=== PATIENT | female | born 1940 | race Caucasian/White ===

== ENCOUNTER 2017-04-27 10:41 | Observation (INO) ==
--- NOTE | 2017-04-27 10:50 | Emergency Department Note ---
Disposition Clinical Impression: Dehydration, Near syncope Disposition: Admitted As Inpatient Condition: Good Referrals: Serena Del Castillo DO [Primary Care Provider] - Forms: ED Satisfaction Letter Syncope HPI - General Chief Complaint: ED Syncope Stated Complaint: syncopal episode Source: patient, other (bystander/friend) Mode of arrival: private vehicle Limitations: no limitations Nursing Notes Reviewed: Yes Vital Signs Reviewed: Yes - History of Present Illness HPI Narrative: Patient presents to the ED via personal vehicle after two witnessed near syncopal events while in pentecostalism. States she was standing in pentecostalism around 10 AM today when she started feeling a "squeezing and pinching" sensation in her back, "as if two vertebrae were fighting". States she began feeling lightheaded and then sat down. She was witnessed to have slumped to the side and was noted to be pale, cool and diaphoretic. Patient states she saw some flashing lights and halos in her vision at the time. She denies any palpitations, chest pain or shortness of breath at the time of either episode. States she did not fully lose consciousness. States she had a similar episode of this squeezing sensation in her back approximately 3 weeks ago when she was doing some light housework at home. States she laid down in bed and propped her feet up and the symptoms went away. She has not seen her doctor about them. Her only current complaint now is feeling generally weak. She denies any numbness, tingling or weakness specifically in an arm or leg or speech difficulties at the time of the near-syncope or currently. History is notable for CHF, hypertension and high cholesterol. States she has a loop recorder and was on a Holter monitor for a history of tachycardia episodes that resulted in an ablation in 2014. She sees Dr. Hernandez of cardiology. Her last visit was 3 months ago. States he has mentioned that she may need some type of open heart surgery for problems with the left side of her heart. She does not recall ever having a cardiac catheterization. States she has never had an GA. She last saw her PCP, Gui Del Castillo, approximately 3 weeks ago and was started on Remeron for appetite stimulation. No other recent medication changes. She denies any swelling in her legs. No current pain. Denies any recent illness, sick contacts or travel. - Related Data Home Medications Medication Instructions Recorded Confirmed Atorvastatin 20 mg PO DAILY 04/27/17 04/27/17 Calcium Carbonate/Vitamin D3 1 tab PO DAILY 04/27/17 04/27/17 [Calcium 600 + Vit D Tablet] Carvedilol [Coreg] 6.25 mg PO BIDWM 04/27/17 04/27/17 Clopidogrel [Plavix] 75 mg PO DAILY 04/27/17 04/27/17 Famotidine [Heartburn Prevention] 20 mg PO DAILY 04/27/17 04/27/17 Furosemide [Lasix] 40 mg PO DAILY 04/27/17 04/27/17 Lisinopril [Zestril] 20 mg PO DAILY 04/27/17 04/27/17 Mirtazapine [Remeron] 15 mg PO HS 04/27/17 04/27/17 Multivit-Min/FA/Lycopen/Lutein 1 each PO DAILY 04/27/17 04/27/17 [Centrum Silver Tablet] Mv-Mn/FA/Vit K1/Lycop/Lut/Zeax 1 each PO DAILY 04/27/17 04/27/17 [Ocuvite Eye + Multi Tablet] [place]-3 Fatty Acids [Fish Oil] 300 mg PO DAILY 04/27/17 04/27/17 Allergies Allergy/AdvReac Type Severity Reaction Status Date / Time aspirin Allergy Hives Verified 04/27/17 10:43 Penicillins [PCN] Allergy Hives Verified 04/27/17 10:43 Constitutional: Denies: fever, chills, weakness, weight change Eyes: Denies: eye pain, eye discharge, vision change ENT ED: Denies: ear pain, throat pain, dental pain, hearing loss, epistaxis, congestion, dysphagia Cardiovascular: Denies: chest pain, palpitations, dyspnea on exertion, edema, syncope Respiratory: Denies: cough, dyspnea, wheezes, hemoptysis, stridor Gastrointestinal: Denies: abdominal pain, nausea, vomiting, diarrhea, constipation, hematemesis, melena, hematochezia Genitourinary: Denies: dysuria, frequency, hematuria, discharge Musculoskeletal: Reports: as per HPI. Denies: back pain, neck pain, arthralgia , myalgia Integumentary: Denies: rash, abrasion, lesions Neurological: Reports: as per HPI. Denies: headache, weakness, numbness, paresthesias, confusion, abnormal gait, vertigo Psychiatric: Denies: anxiety, depression, suicidal thoughts, homicidal thoughts , auditory hallucinations, visual hallucinations Endocrine: Denies: fatigue Hematological/Lymphatic: Denies: easy bleeding, easy bruising Allergic/Immunologic: Denies: facial swelling, urticaria Physical Exam - General Limitations: no limitations General appearance: alert, in no apparent distress, other (thin, frail appearing ) - Head Head exam: atraumatic, normocephalic, normal inspection - Eye Eye exam: Present: normal appearance, PERRL, EOMI - ENT ENT exam: normal exam, normal oropharynx, mucous membranes moist - Neck Neck exam: Present: normal inspection, full ROM, trachea midline - Chest Chest inspection: Present: normal inspection, symmetric chest wall rise - Respiratory Respiratory exam: Present: normal lung sounds bilaterally - Cardiovascular Cardiovascular exam: Present: regular rate, normal rhythm, normal heart sounds - Abdominal Exam Abdominal exam: Present: soft, Non-Tender. Absent: tenderness, distention, guarding, rebound, rigidity - Extremities Exam Extremities exam: Present: normal inspection, full ROM. Absent: tenderness, pedal edema - Back Exam Back exam: Present: normal inspection, full ROM. Absent: tenderness - Neurological Exam Neurological exam: Present: alert, oriented X3, CN II-XII intact. Absent: motor sensory deficit - Expanded Neurological Exam Speech: Present: fluid speech Cerebellar function: finger to nose: Normal Motor strength - LUE: 5/5 Motor strength - RUE: 5/5 Motor strength - LLE: 5/5 Motor strength - RLE: 5/5 - Psychiatric Psychiatric exam: Present: normal affect, normal mood - Skin Skin exam: Present: warm, dry, intact, normal color Course Course Narrative: Patient presents to the ED after experiencing two near syncopal episodes while in pentecostalism. She was initially mildly bradycardic on arrival to the ED with heart rate in the upper 40s which improved to the mid 60s without intervention. Initial blood pressures in the left arm were 80s over 50s compared to 130s over 60s in the right arm. Patient states this is normal for her and it has been that way for quite some time. Review of records shows that she had an abdominal aortic ultrasound and aortic iliac vascular ultrasound last August that showed no evidence of aneurysm. EKG on arrival shows a sinus rhythm with frequent PACs with a rate of 62. No acute ischemic changes. No prior EKGs are available for comparison. Patient is currently asymptomatic. Will obtain chest x-ray, orthostatic vitals and labs to rule out any electrolyte abnormality or other underlying cause for her near syncope which I suspect may be either due to orthostatic hypotension, a vasovagal episode or other cardiac cause. - Reevaluation(s) Reevaluation #1: Orthostatic vital signs were normal and patient experienced no symptoms during testing. Laboratory studies show a normal CBC and normal troponin. BNP is slightly elevated at 212 but chest x-ray does not show any overt failure. BMP shows normal electrolytes but she does have worsening kidney function compared to December with an element of acute kidney injury which is likely due to dehydration. Patient's niece states again that the difference in blood pressures between her arms is normal for the patient. She apparently has a history of mitral valve regurgitation and stenosis or other form of problem in her left subclavian artery that is the cause of this. At this time I do not suspect the patient has had an acute cardiac event but would benefit from some gentle IV hydration with repeat labs in the a.m. Spoke to patient and family who are agreeable with an overnight stay for continued monitoring and hydration. Will contact the hospitalist on-call, Dr. Mc. Time: 12:13 Reevaluation #2: I spoke to the hospitalist sterile preparation technician, Dr. Mc who has accepted the patient. Time: 12:20 Vital Signs Temperature 97.1 F L 04/27/17 10:44 Pulse Rate 67 04/27/17 10:44 Respiratory Rate 18 04/27/17 10:44 Blood Pressure 87/53 04/27/17 10:44 O2 Sat by Pulse Oximetry 99 04/27/17 10:44 Temperature 97.1 F L 04/27/17 10:44 Pulse Rate 65 04/27/17 11:56 Respiratory Rate 18 04/27/17 11:56 Blood Pressure 141/48 04/27/17 11:56 O2 Sat by Pulse Oximetry 99 04/27/17 11:56 Oxygen Delivery Oxygen Delivery Room Air Syncope - Differential Diagnosis Likely: syncope due to orthostatic hypotension, vasovagal syncope - Medical Records Medical records reviewed: Yes I reviewed the patient's medical records. - Lab Data Lab results reviewed: Yes I reviewed the patient's lab results. Result diagrams: 04/27/17 11:18 06/11/17 11:18 Lab Results 04/27/17 04/27/17 04/27/17 Range/Units 11:18 11:18 11:18 WBC 9.1 (4.3-11.1) K/mcL RBC 3.95 (3.82-4.97) M/mcL Hgb 11.8 (11.5-15.4) g/dL Hct 35.5 (35.3-44.9) % MCV 89.9 (83.0-100.0) fL MCH 29.9 (28.0-33.3) pg MCHC 33.2 (31.6-35.5) g/dL RDW 13.9 (11.5-14.5) % Plt Count 183 (140-400) K/mcL MPV 10.1 (9.4-12.4) fL Immature Gran % 0.2 (0-4) % Seg Neutrophils % 73.8 % Lymphocytes % 18.8 % Monocytes % 5.7 % Eosinophils % 1.3 % Basophils % 0.2 % Neutrophils # 6.7 (1.6-8.9) K/mcL Lymphocytes # 1.7 (0.6-4.6) K/mcL Monocytes # 0.5 (0.0-1.3) K/mcL Eosinophils # 0.1 (0.0-0.6) K/mcL Basophils # 0.0 (0.0-0.2) K/mcL PT 10.4 (9.4-12.1) Seconds INR 1.0 APTT 29.6 (26.0-36.0) Seconds Sodium 143 (136-145) mEq/L Potassium 4.1 (3.5-4.5) mEq/L Chloride 107 (98-109) mEq/L Carbon Dioxide 19 (19-29) mEq/L BUN 52 H (7-20) mg/dL Creatinine 1.87 H (0.57-1.11) mg/dL Est GFR ( Amer) 32 L (> 60) Est GFR (Non-Af Amer) 26 L (> 60) BUN/Creatinine Ratio 28 H (6-26) Glucose 120 H (70-99) mg/dL Calculated Osmolality 311 H (280-300) Calcium 9.5 (8.6-10.8) mg/dL Troponin I (0-0.03) ng/mL B-Natriuretic Peptide (0-100) pg/mL 04/27/17 04/27/17 Range/Units 11:18 11:18 WBC (4.3-11.1) K/mcL RBC (3.82-4.97) M/mcL Hgb (11.5-15.4) g/dL Hct (35.3-44.9) % MCV (83.0-100.0) fL MCH (28.0-33.3) pg MCHC (31.6-35.5) g/dL RDW (11.5-14.5) % Plt Count (140-400) K/mcL MPV (9.4-12.4) fL Immature Gran % (0-4) % Seg Neutrophils % % Lymphocytes % % Monocytes % % Eosinophils % % Basophils % % Neutrophils # (1.6-8.9) K/mcL Lymphocytes # (0.6-4.6) K/mcL Monocytes # (0.0-1.3) K/mcL Eosinophils # (0.0-0.6) K/mcL Basophils # (0.0-0.2) K/mcL PT (9.4-12.1) Seconds INR APTT (26.0-36.0) Seconds Sodium (136-145) mEq/L Potassium (3.5-4.5) mEq/L Chloride (98-109) mEq/L Carbon Dioxide (19-29) mEq/L BUN (7-20) mg/dL Creatinine (0.57-1.11) mg/dL Est GFR ( Amer) (> 60) Est GFR (Non-Af Amer) (> 60) BUN/Creatinine Ratio (6-26) Glucose (70-99) mg/dL Calculated Osmolality (280-300) Calcium (8.6-10.8) mg/dL Troponin I 0.01 (0-0.03) ng/mL B-Natriuretic Peptide 212 H (0-100) pg/mL - Radiology Data Radiology results reviewed: Yes I reviewed the patient's radiology results. ITS Impressions Chest X-Ray 04/27/17 11:09 IMPRESSION: Borderline cardiomegaly and probable pulmonary emphysema. No acute infiltrate or edema D/ / Bereket Paniagua MD / Bereket Paniagua MD Interpreting Provider: Bereket Paniagua MD - EKG Data EKG attestation: Yes I reviewed and interpreted this EKG. EKG shows normal: sinus rhythm Rate: normal Rhythm: NSR, PAC's [place]/QRS: normal When compared to previous EKG there are: previous EKG unavailable Interpretation: no acute changes, nonspecific ST-T wave changes
[2017-04-27 11:25] LABS: Basophils % 0.2 %; Eosinophils # 0.1 K/mcL (0.0-0.6); Eosinophils % 1.3 %; Hematocrit 35.5 % (35.3-44.9); Hemoglobin 11.8 g/dL (11.5-15.4); Immature Granulocytes % 0.2 % (0-4); Lymphocytes # 1.7 K/mcL (0.6-4.6); Lymphocytes % 18.8 %; Mean Corpuscular HGB Conc 33.2 g/dL (31.6-35.5); Mean Corpuscular Hemoglobin 29.9 pg (28.0-33.3); Mean Corpuscular Volume 89.9 fL (83.0-100.0); Mean Platelet Volume 10.1 fL (9.4-12.4); Monocytes # 0.5 K/mcL (0.0-1.3); Monocytes % 5.7 %; Neutrophils # 6.7 K/mcL (1.6-8.9); Platelet Count 183 K/mcL (140-400); Red Blood Count 3.95 M/mcL (3.82-4.97); Red Cell Distribution Width 13.9 % (11.5-14.5); Segmented Neutrophils % 73.8 %
[2017-04-27 11:29] LABS: Prothrombin Time 10.4 Seconds (9.4-12.1)
[2017-04-27 11:32] LABS: Activated Partial Thrombo Time 29.6 Seconds (26.0-36.0)
[2017-04-27 11:39] LABS: Calcium 9.5 mg/dL (8.6-10.8); Potassium 4.1 mEq/L (3.5-4.5)
[2017-04-27] MEDS ORDERED: 0.9 % Sodium Chloride 500 ML IVC ONE (11:55)
[2017-04-27] MEDS ORDERED: Naloxone 0.4 MG/ML INJ IVP PRN ×2 (12:22→12:58)
[2017-04-27] MEDS ORDERED: 0.9 % Sodium Chloride 1,000 ML IVC SCH ×2 (12:30→12:58)
[2017-04-27] MEDS ORDERED: Lisinopril 20 MG TABLET PO SCH (12:58)
[2017-04-27] MEDS ORDERED: Furosemide 40 MG TABLET PO SCH (12:58)
[2017-04-27] MEDS: Famotidine 20 MG TABLET PO SCH (14:32)
[2017-04-27] MEDS: [UNRECOGNIZED DRUG - OTHER] PO SCH (14:32)
[2017-04-27] MEDS: (Calcium Carbonate/Vitamin D3 [Calcium 600 + Vit D Ta) PO SCH (14:32)
--- NOTE | 2017-04-27 17:42 | Internal Med History&Physical ---
Date of Encounter: 04/27/17 Time of Encounter: 17:10 Assessment and Plan (1) Near syncope Current visit: Yes Status: Acute Differential diagnosis includes arrhythmias and orthostatic changes from hypovolemia. She was placed on mirror framer. IV fluids will be given and repeat labs will be done in a.m. along with orthostatic vital signs. (2) Azotemia Current visit: Yes Status: Acute We will hold Lasix and lisinopril. We will give IV fluids and do orthostatic vital signs with repeat labs in a.m. Internal Medicine - H&P: HPI Chief complaint: Near syncope Admitted From: Home Plans for Post Hospital Care: Home History of present illness: Ms. Dejesus is a 76 year old female who came to emergency room stating during anabaptist today she had an episode of near syncope. She laid down in a pew and had diaphoresis. There was no chest pain but she did have pain in her lower back. She was evaluated in emergency room found to have renal failure with possible dehydration. She was admitted to [facility] floor for ongoing care needs. She states she had AV node ablation in 2014 for SVT. She had near syncopal episodes prior to the ablation. She is uncertain if she has a definite diagnosis of heart failure. She states she had a non-exercise stress test 2014 without further recommendation for intervention. She denies AL DVT or pulmonary embolus. She states she has significantly lower blood pressure in her left arm than her right arm and has seen a vascular surgeon without intervention recommended. Past Med Surg Social Fam HX - Past Medical History Medical history: CHF, hyperlipidemia, hypertension Psychiatric history: no psych history - Social History Smoking Status: Current every day smoker Packs per day: less than 1ppd Smokeless Tobacco Status: No Alcohol use: none Drug use: none Internal Medicine - H&P: Meds Atorvastatin 20 mg PO DAILY 04/27/17 [History] Calcium Carbonate/Vitamin D3 [Calcium 600 + Vit D Tablet] 1 tab PO DAILY [History] Carvedilol [Coreg] 6.25 mg PO BIDWM 04/27/17 [History] Clopidogrel [Plavix] 75 mg PO DAILY 04/27/17 [History] Famotidine [Heartburn Prevention] 20 mg PO DAILY 04/27/17 [History] Furosemide [Lasix] 40 mg PO DAILY 04/27/17 [History] Lisinopril [Zestril] 20 mg PO DAILY 04/27/17 [History] Mirtazapine [Remeron] 15 mg PO HS 04/27/17 [History] Multivit-Min/FA/Lycopen/Lutein [Centrum Silver Tablet] 1 each PO DAILY 04/27/17 [History] Mv-Mn/FA/Vit K1/Lycop/Lut/Zeax [Ocuvite Eye + Multi Tablet] 1 each PO DAILY 10/03 [History] Artie-3 Fatty Acids [Fish Oil] 300 mg PO DAILY 04/27/17 [History] Allergies aspirin Allergy (Verified 04/27/17 10:43) Hives Penicillins [PCN] Allergy (Verified 04/27/17 10:43) Hives All Systems PM: A 10-system review of systems was performed and is negative for pertinent findings except as documented above in the HPI. Review of systems: Gen.: She states her weight has been stable the past few months Cardiovascular: As per history of present illness Respiratory: She has smoked since age 17 up to 1 pack per day. She denies diagnosis of chronic lung disease and does not wear home oxygen. GI: She denies disorders of her liver gallbladder or exocrine pancreas : She denies hematuria dysuria or kidney stones Neurologic: She denies large distribution strokes or seizures. She denies TIA events. She states she have a sensation of light flashing in her left visual field briefly during the near syncopal episode earlier today. Endocrine: She has hyperlipidemia but denies diabetes or thyroid disease Hematology/oncology: She denies blood disorders or cancers or anemia Psychiatric: She denies anxiety depression other mental health issues [place] skeletal: She has DJD but denies gout or other bone joint or muscle disorders. - Constitutional Vitals: Temp Pulse Resp BP Pulse Ox 97.5 F L 74 16 151/58 100 04/27/17 16:32 04/27/17 16:32 04/27/17 16:32 04/27/17 16:32 04/27/17 16:32 Exam: Gen.: She is a well-developed well-nourished female sitting in a chair who appears in no acute distress HEENT: Head is atraumatic and normocephalic. Eyes: EOMI. There is no scleral icterus. Mouth: Mucosa is moist. Neck: Supple and nontender. There is no thyromegaly or adenopathy noted. Heart: Regular with a 2 to 3/6 murmur heard at the left sternal border radiating to the axillary area. S1 and S2 are soft Lungs: No wheezes or crackles heard. Abdomen: Soft and nontender. Exam is limited because she is in the seated position. Extremities: There is no cyanosis edema or clubbing noted. She has mild dependent rubor. She has mild DJD changes of her hands. Neurologic: Mental status: She is talkative and a good historian. Cranial nerves: Smile is symmetric. Forehead wrinkles bilaterally. Tongue protrudes midline. EOMI. Motor: There is no pronator drift. Cerebellar: Finger to nose is intact bilaterally. Skin: Warm and dry Internal Med - H&P Results - Labs CBC & Chem 7: 04/27/17 11:18 04/27/17 11:18 - VTE Reasons for not Prescribing Prophylaxis: Treatment not Indicated - Low risk for VTE
[2017-04-27] MEDS ORDERED: Mirtazapine 15 MG TABLET PO SCH (21:00)
[2017-04-28 05:02] LABS: Basophils % 0.2 %; Eosinophils # 0.1 K/mcL (0.0-0.6); Eosinophils % 2.5 %; Hematocrit 27.4 % (35.3-44.9); Hemoglobin 9.3 g/dL (11.5-15.4); Lymphocytes # 1.9 K/mcL (0.6-4.6); Lymphocytes % 36.5 %; Mean Corpuscular HGB Conc 33.9 g/dL (31.6-35.5); Mean Corpuscular Hemoglobin 29.7 pg (28.0-33.3); Mean Corpuscular Volume 87.5 fL (83.0-100.0); Mean Platelet Volume 10.3 fL (9.4-12.4); Monocytes # 0.4 K/mcL (0.0-1.3); Monocytes % 8.5 %; Neutrophils # 2.7 K/mcL (1.6-8.9); Platelet Count 144 K/mcL (140-400); Red Blood Count 3.13 M/mcL (3.82-4.97); Red Cell Distribution Width 13.7 % (11.5-14.5); Segmented Neutrophils % 52.3 %
[2017-04-28 05:20] LABS: Albumin 3.1 g/dL (3.5-5.0); Albumin/Globulin Ratio 1.3 (1.1-2.2); Bilirubin,Total 0.3 mg/dL (0.2-1.2); Calcium 8.2 mg/dL (8.6-10.8); Globulin 2.3 g/dL (2.4-3.5); Magnesium 1.9 mg/dL (1.6-2.6); Potassium 4.1 mEq/L (3.5-4.5); Total Protein 5.4 g/dL (6.0-8.3)
[2017-04-28 05:40] LABS: Thyroid Stimulating Hormone 0.986 mcIU/mL (0.350-4.840)
[2017-04-28] MEDS: (Calcium Carbonate/Vitamin D3 [Calcium 600 + Vit D Ta) PO SCH (08:21)
[2017-04-28] MEDS: [UNRECOGNIZED DRUG - OTHER] PO SCH (08:21)
[2017-04-28] MEDS: Famotidine 20 MG TABLET PO SCH (08:21)
[2017-04-28] MEDS ORDERED: Multivit/Ca/Min/Fe/FA 1 TAB TABLET PO SCH (09:00)
--- NOTE | 2017-04-28 09:59 | Electrocardiograph Report ---
[address] [place], [place] [address] Test Date: 2017-04-27 Pat Name: Tamra Dejesus Department: [id number] Room: [facility] Gender: F Sql Engineer: [id number] : [id number] Requested By: Silvia Cunningham Order Number: [id number] Reading MD: Ciaran Graves MD Measurements Intervals [place] Rate: 62 P: 67 [place]: 208 QRS: 41 QRSD: 78 T: -3 QT: 435 QTc: 439 Interpretive Statements SINUS RHYTHM WITH FREQUENT SUPRAVENTRICULAR PREMATURE COMPLEXES Electronically Signed On 04-28-2017 9:57:35 EDT by Ciaran Graves MD
[2017-04-28 10:49] VITALS: BP 156/64
--- NOTE | 2017-04-28 10:49 | Discharge Summary ---
Date of Encounter: 04/28/17 Time of Encounter: 10:25 - Discharge Diagnosis (1) Near syncope Priority: Primary Status: Acute (2) Azotemia Priority: Secondary Status: Acute - Discharge Medications Home Medications: Atorvastatin 20 mg PO DAILY 04/27/17 [History] Calcium Carbonate/Vitamin D3 [Calcium 600 + Vit D Tablet] 1 tab PO DAILY [History] Carvedilol [Coreg] 6.25 mg PO BIDWM 04/27/17 [History] Clopidogrel [Plavix] 75 mg PO DAILY 04/27/17 [History] Famotidine [Heartburn Prevention] 20 mg PO DAILY 04/27/17 [History] Lisinopril [Zestril] 20 mg PO DAILY 04/27/17 [History] Mirtazapine [Remeron] 15 mg PO HS 04/27/17 [History] Multivit-Min/FA/Lycopen/Lutein [Centrum Silver Tablet] 1 each PO DAILY 04/27/17 [History] Mv-Mn/FA/Vit K1/Lycop/Lut/Zeax [Ocuvite Eye + Multi Tablet] 1 each PO DAILY 10/03 [History] [place]-3 Fatty Acids [Fish Oil] 300 mg PO DAILY 04/27/17 [History] Furosemide [Lasix] 20 mg PO DAILY tablet 04/28/17 [Rx] Furosemide [Lasix] 20 mg PO DAILY #0 04/28/17 [Rx] Allergies/Adverse Reactions: Allergies aspirin Allergy (Verified 04/27/17 10:43) Hives Penicillins [PCN] Allergy (Verified 04/27/17 10:43) Hives Procedures/tests Complete & Pending: Procedures Performed prior 72 hours Category Date Time Status CT chest wo con [CT] Routine Cat Scan 04/27/17 17:35 Completed EV echocardiogram Routine Y 04/27/17 17:35 Ordered Date of admission: 04/27/17 12:45 Primary care physician: Serena Del Castillo DO - Patient Status Disposition: Home, Self-Care Condition: Good Functional capacity at discharge: independent ambulation Overall status at discharge: patient is progressing back to baseline - Discharge Instructions Follow Up With: Serena Del Castillo DO [Primary Care Provider] - 1 week - Diet and Activity Activity: resume usual activities as tolerated Diet: advance to your usual diet Hospital course: Ms. Dejesus is a 76 year old female who came to emergency room stating during confucianist today she had an episode of near syncope. She laid down in a pew and had diaphoresis. There was no chest pain but she did have pain in her lower back. She was evaluated in emergency room found to have renal failure with possible dehydration. She was admitted to [facility] for ongoing care needs. Initial orders were written by the emergency room physician. I saw her on April 27 and performed the history and physical. A chest CT was done to further evaluate. 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 A 5 x 3 mm nodule was seen in the right middle lobe. Her PCP can follow-up on recommendations for monitoring this. There is no acute process in the chest seen otherwise. She was given IV fluids and her azotemia improved with BUN and creatinine being 48 and 1.51 respectively on the day of discharge with estimated GFR of 33. She will reduce Lasix to 20 mg daily at discharge. An echocardiogram was ordered but could not be completed prior to discharge. Her PCP can order this as needed. On April 28 she felt stable for discharge home. She will follow with her PCP Dr. Serena Del Castillo within 1 week. - Time Spent with Patient Total time spent providing and/or coordinating discharge services: - Constitutional Vitals: Temp Pulse Resp BP Pulse Ox 97.7 F 63 16 156/72 99 04/28/17 07:11 04/28/17 07:11 04/28/17 07:11 04/28/17 07:11 04/28/17 07:11 - VTE Reasons for not Prescribing Prophylaxis: Treatment not Indicated - Low risk for VTE
== END 2017-04-28 11:17 | disposition home or self-care (01) ==
LOC: INPPIK 10:41 → EMEROOPIK 10:41 → INPPIK 13:35
PROVIDERS: ADMIT Internal Medicine; ATTEND Internal Medicine